=== PATIENT | female | born 1955 | race African-American/Black ===

== ENCOUNTER 2024-03-11 16:28 | Emergency (ER) | payer OTHER ==
[~2024-03-11] VITALS: Ht 180.3 cm; Wt 114.5 kg
[2024-03-12 00:09] VITALS: BP 160/68; PULSE 72; RESP 16; TEMP 98.4; O2SAT 95
== END 2024-03-12 00:14 | disposition home or self-care (01) ==
LOC: ER 16:28
DX: S43.402A Unspecified sprain of left shoulder joint, initial encounter (principal); S43.401A Unspecified sprain of right shoulder joint, initial encounter; S40.022A Contusion of left upper arm, initial encounter; S09.90XA Unspecified injury of head, initial encounter; G93.89 Other specified disorders of brain; I10 Essential (primary) hypertension; W06.XXXA Fall from bed, initial encounter; Y93.89 Activity, other specified; Y92.89 Other specified places as the place of occurrence of the external cause; Y99.8 Other external cause status
CPT/HCPCS: 70450; 73030; 73060